=== PATIENT | female | born 1980 | race Caucasian/White ===

== ENCOUNTER 2018-12-05 08:29 | Day surgery (SDC) | payer BC, OTHER ==
[2018-12-04 15:59] VITALS: BMI 34.3
[2018-12-05] MEDS ORDERED: LIDOCAINE HCL 1%, 10 MG/ML (20ML VIAL) ONE ×2 (10:52→12:21)
--- NOTE | 2018-12-05 11:33 | HP ---
Satellite [facility] - Chief Complaint History of Present Illness: 38 year old woman treated for large retroperitoneal abscess 5 years ago. She has persistent inflammation of a scar in the suprapubic area on the right. No fever, minimal drainage History Source: Patient Limitations to Obtaining History: No Limitations - Past Medical History Allergies/Adverse Reactions: Allergies Allergy/AdvReac Type Severity Reaction Status Date / Time No Known Drug Allergies Allergy Verified 05/04/15 11:53 shrimp Allergy Severe anaphylaxis Uncoded 05/04/15 11:53 Cardiovascular: Yes: Deep Vein Thrombosis ...LMP: 11/17/18 - Current Medications Current Medications: Home Medications Medication Instructions Recorded Clindamycin [Cleocin -] 300 mg PO TID 12/04/18 Satellite Physical Exam - Physical Examination Vital Signs: Vital Signs Period Temp Pulse Resp BP Sys/Lovell Pulse Ox Last 24 Hr 97.7 F-97.7 F 82-82 18-18 137-137/76-76 97 General Appearance: Well Nourished, Alert & Oriented x3 ENT: Clear Lung: Clear to auscultation Heart: Regular rate & rhythm Abdomen: Soft, No tenderness, Other (Right suprapubic scar with multiple sinus openings) Extremities: No edema Satellite Impression/Plan - Impression/Plan Impression: Chronic wound inflammation Operative Procedure: Excisional debridement Date to be Performed: 12/05/18
[2018-12-05] MEDS ORDERED: MIDAZOLAM HCL 2 MG/2 ML SINGLE DOSE VIAL ONE ×2 (11:58)
[2018-12-05] MEDS ORDERED: PROPOFOL 20 ML ONE ×4 (12:04)
[2018-12-05] MEDS ORDERED: LIDOCAINE HCL/PF 2% SDV 5ML VIAL ONE ×3 (12:05→12:49)
[2018-12-05] MEDS ORDERED: BUPIVACAINE HCL/PF 0.5% (5MG/ML) 10 ML VIAL ONE ×2 (12:07→12:21)
[2018-12-05] MEDS ORDERED: VANCOMYCIN 1,000 MG VIAL (RESTRICTED TO ID ONLY) ONE (12:08)
[2018-12-05] MEDS ORDERED: VANCOMYCIN 1,000 MG VIAL (RESTRICTED TO ID ONLY) IVPB ONE (12:12)
[2018-12-05] MEDS ORDERED: BUPIVACAINE HCL/PF (5 MG/ML) 30 ML VIAL IJ ONE ×2 (12:15)
[2018-12-05] MEDS ORDERED: LIDOCAINE HCL 1%, 10 MG/ML (20ML VIAL) INF ONE ×2 (12:15)
[2018-12-05] MEDS ORDERED: DEXAMETHASONE SOD PHOSPHATE 4 MG/1 ML VIAL ONE (12:49)
[2018-12-05] MEDS ORDERED: ONDANSETRON 4 MG/2 ML VIAL ONE (12:49)
[2018-12-05] MEDS ORDERED: GLYCOPYRROLATE 0.2 MG/1 ML VIAL ONE (12:49)
[2018-12-05] MEDS ORDERED: ACETAMINOPHEN WITH CODEINE 300MG/30MG TABLET PO PRN (12:58)
--- NOTE | 2018-12-05 12:58 | OP ---
Operative Note - Note: Operative Date: 12/05/18 Pre-Operative Diagnosis: Chronic inflammation abdominal wound Operation: Excision skin and subcutaneous tissues abdominal wall Findings: Old scar with multiple sinus openings No purulent fluid or granuloma outside of excised tissues. Post-Operative Diagnosis: Same as Pre-op Surgeon: Justin Resendez Anesthesiologist/LOG INSPECTOR: Amber Palma Anesthesia: Fractional Specimens Removed: Skin and subcutaneous tissue. scar Estimated Blood Loss (mls): 20 Drains & Tubes with Location: J-P in wound
[2018-12-05] MEDS ORDERED: oxyCODONE HCL 5 MG TABLET PO PRN ×2 (13:07)
[2018-12-05] MEDS ORDERED: ONDANSETRON 4 MG/2 ML VIAL IVPUSH PRN (13:07)
[2018-12-05] MEDS ORDERED: LACTATED RINGERS SOLUTION 1,000 ML IV SCH (13:15)
[2018-12-05 16:27] VITALS: BP 114/71; PULSE 89; TEMP 98.1
--- NOTE | 2018-12-06 09:14 | OP ---
DATE OF OPERATION: 12/05/2018 SURGEON: Justin Tobar MD PROCEDURE: Excision of skin and subcutaneous tissue of abdominal wall scar. PREOPERATIVE DIAGNOSIS: Chronic inflammation of abdominal scar. POSTOPERATIVE DIAGNOSIS: Chronic inflammation of abdominal scar. ANESTHESIA: Fractional. ANESTHESIOLOGIST: Amber Palma MD OPERATIVE FINDINGS: The right suprapubic scar from previous abdominal wall abscess had multiple sinus tracts and was chronically inflamed. The subcutaneous tissues around the area were normal in appearance with no evidence of infection. OPERATIVE PROCEDURE: Following routine patient identification, intravenous sedation was established. The abdominal wall was prepped with ChloraPrep. Lidocaine 1% mixed with Marcaine 0.5% was infiltrated subcutaneously around the scar in the right lower abdominal wall. An elliptical incision was made around the scar and carried into subcutaneous tissues using cautery for hemostasis. The ellipse of tissue was carried deep to the fascia with cautery in order to excise the entire area of the scar containing presumed granulomas. The wound was irrigated with saline. A Osito-Miguel drain was placed through a stab wound on the lateral aspect of the abdominal wall into the depths of the wound. The wound was then closed over the drain using interrupted sutures of 2-0 Prolene and interrupted 3-0 nylon sutures on the skin. A sterile dressing was applied, and the patient was taken to the recovery room in stable condition. JUSTIN TOBAR M.D. MARVEL/[id number]
[2018-12-07 04:15] LABS: HBsAG SCREEN Negative (Negative)
--- NOTE | 2018-12-07 15:47 | PATH ---
Surgical Pathology Report Patient Name: KEITH ROQUE [facility]. Rec. #: [id number] /Age/Gender: 1980 (Age: 38) / F Account: [id number] Location: [facility] SURGICAL Taken: 12/05/2018 Received: 12/06/2018 Reported: 12/07/2018 Physicians: Justin Resendez M.D. Specimen(s) Received EXCISION OF SUBCUTANEOUS TISSUE Clinical History Granuloma of skin, excisional debridement abdominal wall Final Diagnosis SUBCUTANEOUS TISSUE, EXCISION: SEGMENT OF SKIN AND SUBCUTANEOUS TISSUE SHOWING FOCAL SKIN ULCERATION, ACUTE AND CHRONIC INFLAMMATION WITH ABSCESS FORMATION. Electronically Signed Gerald May M.D. Gross Description Received in formalin labeled "excision of subcutaneous tissue," is a 6.3 x 2.0 cm ruggiero, elliptical, unoriented portion of skin excised to depth of 3.0 cm. The epidermal surface displays a central, linear invagination. Sectioning reveals white fibrous tissue. A apparel trimmings sales representative section is submitted in one cassette. /12/06/2018 saudi12/06/2018
--- NOTE | 2018-12-19 10:25 | OP ---
DATE OF OPERATION: 12/05/2018 ADDENDUM FINDINGS: The size of the surgical specimen was 6 x 2 cm. Sergio [id number]
== END 2018-12-05 16:50 | disposition home or self-care (01) ==
LOC: JASU-SURG 08:29
PROVIDERS: ATTEND Surgery
PROC: 0JB80ZZ Excision of Abdomen Subcutaneous Tissue and Fascia, Open Approach (ICD-10-PCS; principal; 2018-12-05 10:00)
DX: L92.8 Other granulomatous disorders of the skin and subcutaneous tissue (principal)
CPT/HCPCS: 36415; 84460; 84703; 86803; 87340; 87389; 88304-TC; 94760

== ENCOUNTER 2019-05-14 12:06 | Emergency (ER) | payer BC, OTHER | END 2019-05-14 17:45 | disposition home or self-care (01) | LOC: JER 12:06 ==